=== PATIENT | female | born 1990 | race Caucasian/White ===

== ENCOUNTER 2020-10-05 10:42 | Outpatient (CLI) | payer SELFPAY ==
[2020-10-08 16:47] LABS: Patient Race White; SARS-CoV-2 RNA Undetected (Undetected); SARS-CoV-2 Specimen Source Nasal
== END 2020-10-05 11:02 ==
PROVIDERS: PCP Internal Medicine; Visit Provider Internal Medicine
DX: Z20.828 Contact with and (suspected) exposure to other viral communicable diseases (principal)
CPT/HCPCS: U0003

== ENCOUNTER 2022-08-23 16:04 | Emergency (ER) | payer BC, SELFPAY ==
[2022-08-23 16:37] VITALS: BP 95/62; PULSE 114; RESP 22; TEMP 38.4; O2SAT 98
[2022-08-23 17:01] LABS: Bilirubin Negative (Negative); Blood Moderate (Negative); Clarity Sl Cloudy (Clear); Glucose Negative (Negative); Ketones 40 mg/dL (Negative); Leukocyte Esterase Small (Negative); Nitrite Negative (Negative); Specific Gravity 1.015 (1.005-1.025); pH 6.5 (5-8)
[2022-08-23 17:13] LABS: Abs Immature Grans 0.04 10^3/uL (0.0-0.06); Absolute Basophil Count 0.07 10^3/uL (0.0-0.2); Absolute Eosinophil Count 0.09 10^3/uL (0.0-0.7); Absolute Lymphocyte Count 0.96 10^3/uL (1.2-3.4); Absolute Monocyte Count 0.85 10^3/uL (0.1-0.8); Absolute Neutrophil Count 8.67 10^3/uL (1.2-6.7); Basophils % 0.7; Eosinophils % 0.8; HCT 38.3 % (36.0-46.0); HGB 12.5 g/dL (11.2-15.7); Immature Grans % 0.4; MCH 28.2 pg (27.0-33.0); MCHC 32.6 % (32.0-36.0); MCV 86 fL (80-95); MPV 10.7 fL (8.0-11.0); Neutrophils % 81.1; Platelet Count 263 10^3/uL (130-400); RBC 4.44 10^6/uL (3.93-5.22); RDW 13.6 % (11.7-14.6); WBC 10.68 10^3/uL (4.4-10.8)
[2022-08-23 17:13] LABS: Bacteria Few HPF (Negative); C & S Indicated? No/Sq. Contamination; Crystals Negative HPF (Negative); Epithelial Cells Many HPF (Negative); Mucus Negative (Negative); WBC >50 HPF (0-5)
--- NOTE | 2022-08-23 17:22 | ED.GENADUL_ITS ---
Discharge Plan Disposition Patient Disposition: HOME Condition: Improving Discharge Details Clinical Impression: Pyelonephritis Primary Care Provider: Heriberto Altman ED Provider: Estevan Chance Home Meds and New Rx's Prescriptions: New cefpodoxime 200 mg tablet 200 mg PO BID 10 Days Qty: 20 0RF Rx Instructions: must administer with a meal/food Discharge Instructions Instructions: Urinary Tract Infection in Women (ED), Kidney Infection (ED) Additional Instructions: Please follow-up with your primary care physician. Please return to the emergency department you have any worsening symptoms or no improvement of your current symptoms. Take medications as prescribed. Medical Decision Making 31-year-old female recently diagnosed with urinary tract infection presents with bilateral flank pain fevers and chills, worsening over the last day, despite taking 24 hours of ciprofloxacin. Tachycardic hypotensive febrile on arrival although alert oriented in no acute distress; clinical suspicion high for pyelonephritis. Will obtain IV access fluid bolus, IV ceftriaxone, blood cultures and labs UA test. Lower suspicion for kidney stone or intra- abdominal infection. Pending reassessment after labs imaging and treatment will determine whether the patient needs to be inpatient or can be treated with p.o. antibiotics. If home with antibiotics will likely place on oral third- generation cephalosporin given poor response to ciprofloxacin. 18: 31 patient resting comfortably feeling better after medications. Heart rate has improved from 115 to now 99 bpm, blood pressure marek stable 98 systolic, patient does endorse that her blood pressure usually runs low. No nausea vomiting, patient would like to trial p.o. antibiotics as an outpatient if she is feeling better, given strict return precautions for any worsening symptoms or inability to take p.o. Will start on cefpodoxime. HPI General Date/Time Provider Initiated Documentation: 08/23/22 16:22 . HPI Narrative: 31-year-old presents with flank pain and fever over the past several days, diagnosed with a urinary tract infection started on ciprofloxacin, has been on 24 hours of antibiotics without improvement. Persistent symptoms. Does have a history of remote kidney stone she endorses that this symptomatology feels much different than her prior kidney stone. Related Data Home Medications Medication Instructions Recorded Confirmed cefpodoxime 200 mg tablet 200 mg PO BID 10 days #20 tabs 08/23/22 Previous Rx's Medication Instructions Recorded cefpodoxime 200 mg tablet 200 mg PO BID 10 days #20 tabs 08/23/22 Allergies Allergy/AdvReac Type Severity Reaction Status Date / Time bupropion [From Wellbutrin] Allergy Hives Unverified 05/09/17 15:27 General Stated Complaint: FlankPain ZIA: 2 Review of Systems Narrative: Review of Systems Constitutional: Fever Eyes: negative ENT: negative Cardiovascular: negative Respiratory: negative Gastrointestinal: negative : Flank pain Musculoskeletal: negative Skin: negative Neurologic: negative Psych: negative PFSH All Active Problems (Updated 08/23/22 @ 18:34 by Estevan Chance MD) Pyelonephritis (Acute) Social History Smoking/Tobacco Use Status: Current every day Smoking risk assessment performed?: Yes Alcohol Intake: never Drug use: Never Do you feel safe in your relationship?: Yes Exam Narrative Exam Narrative: Physical Examination General: alert, awake, cooperative HEENT: normocephalic, atraumatic; PERRL, EOM intact, conjunctiva normal; no na sesar discharge; moist mucous membranes, oral and pharyngeal mucosa normal, tolerating secretions Neck: supple, trachea midline; full ROM Chest: normal to inspection Respiratory: normal respiratory effort, speaking in full sentences, clear to auscultation, no wheezing, rales or rhonchi Cardiac: Tachycardia, regular rhythm, S1S2 intact, no murmurs rubs or gallops GI: abdomen soft, non-tender, non-distended; no palpable mass or hepatosplenomegaly : CVA tenderness right greater than left Skin: no lesions, rashes or trauma appreciated Neuro: AAOx3, normal speech, moving all extremities Psych: Appropriate mood and affect Course Vital Signs Vital signs: Vital Signs Temperature 38.4 C H 08/23/22 16:37 Pulse 114 H 08/23/22 16:37 Respiratory Rate 22 08/23/22 16:37 Blood Pressure 95/62 L 08/23/22 16:37 Pulse Oximetry 98 08/23/22 16:37 Temperature 38.4 C H 08/23/22 16:37 Temperature Source Oral 08/23/22 16:37 Pulse 114 H 08/23/22 16:37 Respiratory Rate 22 08/23/22 16:37 Respiratory Effort Non-Labored 08/23/22 16:53 Blood Pressure 95/62 L 08/23/22 16:37 Blood Pressure Position Sitting 08/23/22 16:37 Pulse Oximetry 98 08/23/22 16:37 Oxygen Delivery Method Room Air 08/23/22 16:37 Oxygen Flow Rate 0 08/23/22 16:37 Pain Level 9 08/23/22 16:37 Lab/Test Results Lab/Test Results: 08/23/22 17:00 Blood Blood Culture - Pending 08/23/22 16:52 Blood Blood Culture - Pending Laboratory Tests Range/Units 08/23/22 08/23/22 16:48 17:00 WBC (4.4-10.8) 10^3/uL 10.68 RBC (3.93-5.22) 10^6/uL 4.44 Hgb (11.2-15.7) g/dL 12.5 Hct (36.0-46.0) % 38.3 MCV (80-95) fL 86 MCH (27.0-33.0) pg 28.2 MCHC (32.0-36.0) % 32.6 RDW (11.7-14.6) % 13.6 Plt Count (130-400) 10^3/uL 263 MPV (8.0-11.0) fL 10.7 Immature Gran % 0.4 Neutrophils % 81.1 Lymphocytes % 9.0 Monocytes % 8.0 Eosinophils % 0.8 Basophils % 0.7 Nucleated RBC % (0.0-0.3) % 0.0 Absolute Neutrophils (1.2-6.7) 10^3/uL 8.67 H Absolute Lymphocytes (1.2-3.4) 10^3/uL 0.96 L Absolute Monocytes (0.1-0.8) 10^3/uL 0.85 H Absolute Eosinophils (0.0-0.7) 10^3/uL 0.09 Absolute Basophils (0.0-0.2) 10^3/uL 0.07 Urine Color (Yellow) Yellow Urine Clarity (Clear) Sl Cloudy Urine pH (5-8) 6.5 Ur Specific [place] (1.005-1.025) 1.015 Urine Protein (Negative) mg/dL 30 H Urine Ketones (Negative) mg/dL 40 H Urine Blood (Negative) Moderate H Urine Nitrite (Negative) Negative Urine Bilirubin (Negative) Negative Urine Urobilinogen (Up TO 0.2) EU/dL 1.0 H Ur Leukocyte Esterase (Negative) Small H Urine RBC (0-2) HPF 5-10 H Urine WBC (0-5) HPF >50 H Ur Epithelial Cells (Negative) HPF Many Urine Crystals (Negative) HPF Negative Urine Bacteria (Negative) HPF Few Urine Mucus (Negative) Negative Ur Culture Indicated? No/Sq. Contamination Urine Glucose (Negative) mg/dL Negative POC- Test(urine) Negative
[2022-08-23 17:30] LABS: ALT 30 U/L (14-59); AST 23 U/L (15-37); Albumin 3.6 g/dL (3.4-5.0); Alkaline Phosphatase 70 U/L (46-116); BUN 11 mg/dL (7-18); Bilirubin, Total 0.3 mg/dL (0.2-1.0); CREATININE 0.9 mg/dL (0.55-1.02); Calcium 9.1 mg/dL (8.5-10.1); Chloride 97 mmol/L (98-107); Estimated GFR 86.57 (mL/min/1.73m2); Glucose 110 mg/dL (74-106); Potassium 3.1 mmol/L (3.5-5.1); Sodium 134 mmol/L (136-145); Total Protein 8.3 g/dL (6.4-8.2)
[2022-08-23] MEDS: Ketorolac 15 MG/ML VIAL IVP (17:40)
[2022-08-23] MEDS: cefTRIAXone 1 GM/50 ML BAG IVPB (17:41)
[2022-08-23] MEDS: Normal Saline 1,000 ML 2000 ML IV (17:41)
[2022-08-23 19:00] VITALS: BP 98/57; PULSE 78; RESP 18; O2SAT 100
== END 2022-08-23 19:05 | disposition home or self-care (01) ==
PROVIDERS: Emergency Provider Emergency Medicine; PCP Internal Medicine
DX: N12 Tubulo-interstitial nephritis, not specified as acute or chronic (principal); I95.9 Hypotension, unspecified; R00.0 Tachycardia, unspecified; F17.200 Nicotine dependence, unspecified, uncomplicated; Z87.440 Personal history of urinary (tract) infections
CPT/HCPCS: 36415; 80053; 81025; 87040; 96365; 96375; 99284; 81003; 81015; 85025; J0696; J1885

== ENCOUNTER 2023-10-07 17:26 | Outpatient (REF) | payer SELFPAY ==
[2023-10-07 14:47] LABS: Abs Immature Grans 0.01 10^3/uL (0.0-0.06); Absolute Basophil Count 0.11 10^3/uL (0.0-0.2); Absolute Eosinophil Count 0.33 10^3/uL (0.0-0.7); Absolute Lymphocyte Count 1.59 10^3/uL (1.2-3.4); Absolute Monocyte Count 0.35 10^3/uL (0.1-0.8); Absolute Neutrophil Count 2.88 10^3/uL (1.2-6.7); Basophils % 2.1; Eosinophils % 6.3; HCT 37.7 % (36.0-46.0); HGB 12.8 g/dL (11.2-15.7); Immature Grans % 0.2; Lymphocytes % 30.2; MCH 30.3 pg (27.0-33.0); MCV 89 fL (80-95); Monocytes % 6.6; Neutrophils % 54.6; Platelet Count 221 10^3/uL (130-400); RBC 4.23 10^6/uL (3.93-5.22); RDW 13.5 % (11.7-14.6); RDW-SD 44.4 fL; WBC 5.27 10^3/uL (4.4-10.8)
[2023-10-07 15:07] LABS: ALT 24 U/L (14-59); AST 16 U/L (15-37); Albumin 3.9 g/dL (3.4-5.0); Alkaline Phosphatase 35 U/L (46-116); Anion Gap 3.9 mmol/L (3-11); BUN 12 mg/dL (7-18); Bilirubin, Total 0.7 mg/dL (0.2-1.0); CO2 31.1 mmol/L (21.0-32.0); CREATININE 0.7 mg/dL (0.55-1.02); Calcium 9.4 mg/dL (8.5-10.1); Chloride 104 mmol/L (98-107); Estimated GFR 116.31 (mL/min/1.73m2); Glucose 91 mg/dL (74-106); NT-proBNP 178 pg/mL (<300); Potassium 4.2 mmol/L (3.5-5.1); Sodium 139 mmol/L (136-145); TSH (W/Ref FT4) 0.89 uIU/mL (0.36-3.74); Total Protein 7.2 g/dL (6.4-8.2)
== END 2023-10-07 17:27 | disposition home or self-care (01) ==
LOC: LBN 17:26
PROVIDERS: PCP Internal Medicine; Visit Provider Nurse Practitioner Family
DX: R60.9 Edema, unspecified (principal); R53.83 Other fatigue
CPT/HCPCS: 80053; 83880; 84443; 85025

== ENCOUNTER 2024-06-29 09:24 | Outpatient (CLI) | payer OTHER, SELFPAY ==
[2024-06-29 09:51] LABS: ALT 23 U/L (14-59); AST 13 U/L (15-37); Albumin 4.1 g/dL (3.4-5.0); Alkaline Phosphatase 48 U/L (46-116); Anion Gap 7.5 mmol/L (3-11); BUN 9 mg/dL (7-18); CO2 30.5 mmol/L (21.0-32.0); CREATININE 0.9 mg/dL (0.55-1.02); Calcium 9.2 mg/dL (8.5-10.1); Calculated LDL 87 mg/dL (<100); Chloride 102 mmol/L (98-107); Cholesterol 190 mg/dL (<200); Glucose 85 mg/dL (74-106); HDL Cholesterol 89 mg/dL (40-60); Sodium 140 mmol/L (136-145); TSH (W/Ref FT4) 0.81 uIU/mL (0.36-3.74); Total Protein 7.9 g/dL (6.4-8.2); Triglyceride 71 mg/dL (<150)
[2024-06-29 10:14] LABS: Bilirubin, Total 0.32 mg/dL (0.2-1.0); FREE T4 0.92 ng/dL (0.76-1.46)
[2024-06-29 21:26] LABS: Estradiol 101 pg/mL (See Note)
[2024-06-29 21:42] LABS: FSH 5.5 mIU/mL (See Note); LH 8.1 mIU/mL (See Note)
== END 2024-06-29 09:25 | disposition home or self-care (01) ==
LOC: LBO 09:24
PROVIDERS: PCP Nurse Practitioner; Visit Provider Nurse Practitioner
DX: N92.6 Irregular menstruation, unspecified (principal); I10 Essential (primary) hypertension; R14.0 Abdominal distension (gaseous); Z13.220 Encounter for screening for lipoid disorders
CPT/HCPCS: 36415; 80053; 80061; 82670; 83001; 83002; 84439; 84443